=== PATIENT | male | born 1945 | race Two or more races ===

== ENCOUNTER 2018-12-22 10:45 | Inpatient (IN) | payer OTHER ==
[~2018-12-22] VITALS: Ht 162.6 cm; Wt 59.0 kg
[~2018-12-22 10:45] MED LIST: OXYC1TAB9 PO; POLY119PG PO; TAMS0.4C PO
[2018-12-28] MEDS ORDERED: INTESTINEX680 M1 PO (14:45)
[2018-12-28] MEDS ORDERED: PROTONIX40 MG PO (14:46)
[2018-12-28] MEDS ORDERED: AMOX1TAB5 PO (14:46)
== END 2018-12-28 15:02 | disposition home or self-care (01) | DRG 394 ==
LOC: O/R 12-25 06:42 → SURH 12-25 06:42
PROVIDERS: ADMIT Surgery
PROC: 0DBP8ZZ Excision of Rectum, Via Natural or Artificial Opening Endoscopic (ICD-10-PCS; principal; 2018-12-25 23:45)
DX: K62.1 Rectal polyp (principal); D62 Acute posthemorrhagic anemia; J45.998 Other asthma; N40.0 Benign prostatic hyperplasia without lower urinary tract symptoms

== ENCOUNTER 2023-05-12 05:16 | Day surgery (SDC) | payer OTHER ==
[~2023-05-12] VITALS: Ht 162.6 cm; Wt 61.7 kg
[~2023-05-12 05:16] MED LIST changes: +AMOX1TAB5 PO; +INTESTINEX680 M1 PO; +PROTONIX40 MG PO
[2023-05-12] MEDS ORDERED: PERCOCET 5-3251 EACH PO (08:58)
[2023-05-12] MEDS ORDERED: RECTICARE30 GM TOP (08:59)
== END 2023-05-12 15:00 | disposition home or self-care (01) ==
LOC: CIR.AMB 05:16
PROVIDERS: ATTEND Surgery
DX: D12.8 Benign neoplasm of rectum (principal); D12.9 Benign neoplasm of anus and anal canal; Z20.822 Contact with and (suspected) exposure to COVID-19